=== PATIENT | female | born 1990 | race Caucasian/White ===

== ENCOUNTER 2017-06-15 20:15 | Emergency (ER) | payer MEDICAID ==
[~2017-06-15] VITALS: Ht 162.6 cm; Wt 56.7 kg
--- NOTE | 2017-06-15 20:16 | NUR ---
TO ROOM 3 ACCOMPANIED BY [employer] AND [employer]
[2017-06-15] MEDS ORDERED: [UNRECOGNIZED DRUG - OTHER] (20:27)
[2017-06-15] MEDS ORDERED: [UNRECOGNIZED DRUG - OTHER] (20:27)
[2017-06-15] MEDS ORDERED: GABAPENTIN CAP 300MG (20:27)
[2017-06-15] MEDS ORDERED: PALIPERIDONE 234 MG (20:27)
[2017-06-15] MEDS ORDERED: TRAZODONE TAB 50MG (20:27)
[2017-06-15] MEDS ORDERED: LITHIUM CARBONATE 300 MG (20:27)
[2017-06-15] MEDS ORDERED: CLONAZEPAM TAB 1MG (20:27)
[2017-06-15] MEDS ORDERED: LORAZEPAM 2 MG/1 ML VIAL IM ONE ×2 (20:30→21:15)
[2017-06-15] MEDS ORDERED: OLANZAPINE 10 MG VIAL IM ONE ×2 (20:30→20:37)
--- NOTE | 2017-06-15 20:30 | NUR ---
PT THRASHING AROUND IN BED.ERMD AT BEDSIDE WITH PT
--- NOTE | 2017-06-15 20:35 | NUR ---
PT MEDICATED ORDERED FOR AGITATION
[2017-06-15] MEDS ORDERED: LORAZEPAM 2 MG/1 ML VIAL ONE ×2 (20:37→21:23)
[2017-06-15 20:59] LABS: CARBON DIOXIDE 25 mmol/L (21-32); CHLORIDE 101 mmol/L (98-107); CREATININE 0.9 mg/dL (0.6-1.3); ETHANOL < 3 MG/DL (0-0); GLUCOSE 105 mg/dL (74-106); UREA NITROGEN, BLOOD 5 mg/dL (7-18)
--- NOTE | 2017-06-15 21:00 | NUR ---
PT CONTINUING WITH AGITATION AND YELLING ERMD AWARE
[2017-06-15 21:04] LABS: BASOPHILS # (AUTO) 0.5 K/uL (0.0-8.0); BASOPHILS % (AUTO) 2.9 % (0.0-2.0); EOSINOPHILS # (AUTO) 0.1 K/uL (0.0-0.7); EOSINOPHILS % (AUTO) 0.7 % (0.0-7.0); HEMATOCRIT 39.2 % (37-47); HEMOGLOBIN 13.1 G/DL (12.0-16.0); LYMPHOCYTES # (AUTO) 1.9 K/UL (0.8-4.8); LYMPHOCYTES % (AUTO) 11.9 % (20.5-51.5); MEAN CORPUSCULAR HEMOGLOBIN 29.1 UUG (27.0-31.0); MEAN CORPUSCULAR HGB CONC 33 g/dL (32.0-37.0); MONOCYTES # (AUTO) 1.3 K/UL (0.1-1.30); MONOCYTES % (AUTO) 8.2 % (0.0-11.0); NEUTROPHILS # (AUTO) 12.1 K/UL (1.8-8.9); NEUTROPHILS % (AUTO) 76.3 % (38.5-71.5); PLATELET COUNT (AUTO) 364 K/UL (150-450); RED BLOOD CELL COUNT(AUTO) 4.51 MIL/UL (4.2-5.4); WHITE BLOOD COUNT (AUTO) 15.9 K/UL (4.0-11.2)
[2017-06-15 21:05] LABS: ALANINE AMINOTRANSFERASE 28 U/L (14-59); ALKALINE PHOSPHATASE 104 U/L (50-136); ASPARTATE AMINOTRANSFERASE 21 U/L (15-37); BILIRUBIN,DIRECT 0.2 mg/dL (0.0-0.2); BILIRUBIN,TOTAL 0.7 mg/dL (0.2-1.0); TOTAL PROTEIN, SERUM 7.4 g/dL (6.4-8.2)
[2017-06-15 21:05] LABS: *BILIRUBIN,URIN NEGATIVE (NEGATIVE); *BLOOD, URINE Trace-intact (NEGATIVE); *COLOR,URINE YELLOW (YELLOW); *KETONES,URINE NEGATIVE (NEGATIVE); *PROTEIN,URINE NEGATIVE (NEGATIVE); *UROBILINOGEN,URINE 0.2 E.U./dl (NORMAL); LEUKOCYTE ESTERASE ,URINE 1+ (NEGATIVE); NITRITE, URINE NEGATIVE (NEGATIVE); UGLUCOSE NEGATIVE (NEGATIVE)
[2017-06-15 21:09] LABS: *CLARITY,URINE SLIGHTLY HAZY (CLEAR); *URINE HCG, QUAL NEGATIVE (NEGATIVE)
[2017-06-15 21:12] LABS: BACTERIA,URINE FEW /HPF (NONE SEEN); RBC,URINE 0-3 /HPF (0-3); SQUAMOUS EPITHELIAL CELL,UR FEW /HPF (NONE SEEN)
[2017-06-15 21:13] LABS: ACETAMINOPHEN < 2.0 ug/mL (10-30)
[2017-06-15] MEDS ORDERED: POTASSIUM CHLORIDE 20 MEQ TAB.PRT.SR PO ONE (21:30)
--- NOTE | 2017-06-15 21:36 | NUR ---
PT SLEEPING RESPIRATIONS NON LABORED.02 SAT ROOM AIR 100%.[id number]
[2017-06-15 22:03] LABS: *AMPHETAMINE, URINE POSITIVE (NEGATIVE); *BARBITURATE, URINE NEGATIVE (NEGATIVE); *CANNABINOID, URINE NEGATIVE (NEGATIVE); *COCCAINE, URINE NEGATIVE (NEGATIVE); *OPIATE, URINE NEGATIVE (NEGATIVE); *PHENCYCLIDINE SCREEN,URINE NEGATIVE (NEGATIVE)
--- NOTE | 2017-06-16 01:13 | NUR ---
Patient is resting comfortably in bed with eyes closed
--- NOTE | 2017-06-16 02:41 | NUR ---
Patient sleeping in bed.
--- NOTE | 2017-06-16 05:00 | NUR ---
Hands off report received from ticket printer and tagger. Pt sleeping with no s/s of distress noted.
--- NOTE | 2017-06-16 09:30 | NUR ---
Pt sleeping, aroused with verbal stimuli, states " I just want to sleep some more". NAD noted.
--- NOTE | 2017-06-16 10:30 | NUR ---
Pt sleeping, aroused with verbal stimuli, pt is oriented x 2 at this time, pt refused breakfast, states " I still need to sleep ". Dr. Rivas notified.
--- NOTE | 2017-06-16 12:00 | NUR ---
Woke pt up for lunch, pt drank fluids and stated "I'm to sleepy to ear right now, I ear later ".
--- NOTE | 2017-06-16 13:00 | NUR ---
Pt is awake and alert and ate lunch. Called social media community manager (Tin) to come speak with the pt per Dr. Rivas request.
--- NOTE | 2017-06-16 13:40 | NUR ---
Pt refused to talk to the administrator social welfare.
--- NOTE | 2017-06-16 13:44 | NUR ---
SW arrived to ED and consulted with RAYMOND Silverman. SW tried meeting with patient, but patient was asleep in her assigned ED room. SW called patient's name out 4 times, but patient did not respond. SW reported back to RAYMOND Silverman, who then escorted SW back to patient's room and tried to wake patient up. Patient woke up when Herrera called out her name and touched her arm. When Herrera informed patient that SW was here to talk to her, patient looked at SW and said "no", turned her head away and closed her eyes. SW tried calling patient's name again and introduced herself, but patient once again said "no" and then mumbled, keeping her eyes closed and head turned away from SW. SW tried one more time to call her name, but patient did not respond. SW left the room and informed RAYMOND Silverman about above. No further attempts will be made by SUNNY at this time. Dr Rivas also informed. If requested again by ED staff for further SW assistance, SUNNY will attempt to work with patient again.
--- NOTE | 2017-06-16 13:45 | NUR ---
Dr. Rivas spoke with the pt and pt agreed to speak to the social worker assistant.
--- NOTE | 2017-06-16 13:50 | NUR ---
SUNNY met with patient again, per Dr. Rivas's request, who went into the ED room to wake patient up. Patient was not very cooperative with SW, but still responded to a few of the questions that SW asked. Patient stated that she came here by bus because she was in traffic in [place] with friends, however patient's record reports state that patient was brought in by the police after getting picked up for disruptive behavior on the streets; patient tested positive for amphetamines. Patient suddenly became tearful and stated that she wanted help getting out of here. SW explained to patient that SW was here to help her with her discharge, and asked patient if there was any family member or friend that she could call for her. Patient asked SW to call her grandmother Lisa who lives in [facility] [phone]. No additional psychosocial information was able to be gathered by this SW. SW called patient's grandmother and was able to connect with her. When SUNNY informed Lisa that this was the SW calling from [facility], Lisa stated "do you have Caitlin"? SUNNY informed Lisa that Caitlin was here and that she had asked for us to call her. Lisa then stated that she was on an important call on the other line and asked if she could call SW back. SUNNY provided Lisa with the phone number to the ED. Patient then came out of her room and approached SUNNY in the nurses station, asking to talk to her grandmother. Patient was tearful once again. SUNNY informed patient that she had just gotten off the phone with patient's grandmother, and was waiting for her to call her back. Patient stated that she just wanted to leave. At this point, Dr. Rivas asked patient if she wanted to be discharged, and patient said "yes". Patient also stated that she wanted to go to the nearest social security office because she wanted to get access to her money. SUNNY provided patient with the address to the nearest social security office: [address] [place] [address]. SW asked patient if she needed any other resources, and patient stated "no". No further interventions needed at this time. Patient's grandmother Lisa has still not called back; patient discharged (see RAYMOND Silverman's notes).
--- NOTE | 2017-06-16 14:05 | NUR ---
Patient discharged in stable conditon. Written and verbal after care instructions given. Patient verbalizes understanding of instructions. Pt was given referrals by social secretary. Pt ambulated out of ER with steady gait.
== END 2017-06-16 14:08 | disposition home or self-care (01) ==
LOC: ER 20:15
DX: F20.9 Schizophrenia, unspecified (principal); E87.6 Hypokalemia; F15.10 Other stimulant abuse, uncomplicated
CPT/HCPCS: 36415; 80048; 80076; 80307; 81001; 84703; 85025; 93005; 96372 ×3; 99285; A4663; G0480 ×2; G0481; J2060 ×2; J2358